=== PATIENT | female | born 1980 | race American Indian/Alaskan Native ===

== ENCOUNTER 2019-03-01 19:59 | Emergency (ER) | payer SELFPAY ==
--- NOTE | 2019-03-01 21:33 | Emergency Department Report ---
Blank Doc - Documentation Documentation: Pt reports that she is having chest pain burning and sharp. Pain is 9/10 const ant and located left chest and radiating to back. No fever . positive chills. no cough. Pain worst with inspiration. No h/o blood clots . pain x 1 month. On depo . No medical problems Patient no toxic in appearance and NL WOB Xray, labs, EKG
[2019-03-01 21:56] LABS: Basophils # (Auto) 0.1 K/mm3 (0.0-0.1); Eosinophils # (Auto) 0.2 K/mm3 (0.0-0.4); Eosinophils % (Auto) 2.4 % (0.0-4.3); Hematocrit 37.7 % (30.3-42.9); Hemoglobin 13.2 gm/dl (10.1-14.3); Lymphocytes % (Auto) 40.8 % (13.4-35.0); Mean Corpuscular HGB Conc 35 % (30-34); Mean Corpuscular Volume 81 fl (79-97); Monocytes # (Auto) 0.6 K/mm3 (0.0-0.8); Monocytes % (Auto) 8.4 % (0.0-7.3); Platelet Count 273 K/mm3 (140-440); Red Blood Count 4.69 M/mm3 (3.65-5.03)
[2019-03-01 22:06] LABS: INR 0.99 (0.87-1.13)
[2019-03-01 22:15] LABS: Alanine Aminotransferase 21 units/L (7-56); Albumin 3.7 g/dL (3.9-5); BUN/Creatinine Ratio 13; Blood Urea Nitrogen 9 mg/dL (7-17); Hemolysis Index 40
[2019-03-01 22:25] LABS: Partial Thromboplastin Time 25.9 Sec. (24.2-36.6)
--- NOTE | 2019-03-01 23:07 | XRay Report ---
CHEST 2 VIEWS INDICATION / CLINICAL INFORMATION: Chest pain. COMPARISON: None available. FINDINGS: SUPPORT DEVICES: None. HEART / MEDIASTINUM: The heart size and pulmonary vasculature are normal. The aorta is normal in [place]en [place]. LUNGS / PLEURA: No significant pulmonary or pleural abnormality. No pneumothorax. ADDITIONAL FINDINGS: No significant additional findings. IMPRESSION: No acute findings. Signer Name: Wilver Germain MD Signed: 03/01/2019 11:02 PM Workstation Name: [id number]
[2019-03-01] MEDS ORDERED: ASPIRIN PO ONE (23:24)
[2019-03-02] MEDS ORDERED: ALUM-MAG HYDROX-SIMETH 200-200-20MG/5ML PO ONE (00:41)
[2019-03-02] MEDS ORDERED: TORADOL IM ONE (00:41)
[2019-03-02] MEDS ORDERED: LIDOCAINE VISCOUS 2% PO ONE (00:41)
--- NOTE | 2019-03-02 01:59 | Emergency Department Report ---
ED Chest Pain HPI - General Chief Complaint: Chest Pain Stated Complaint: CHEST PAIN Time Seen by Provider: 03/01/19 21:27 Source: patient Mode of arrival: Ambulatory Limitations: No Limitations - History of Present Illness Initial Comments: Patient is a 38-year-old female with no past medical history who presents to the ED with complaint of acute onset persistent constant chest pain for the last 1 month. Patient states that the pain is worse with any active range of motion, palpation, movement or heavy lifting. Patient states that her job entails heavy lifting and states that this makes her chest pain worse. Patient states that in the last 3 days the pain has worsened. Patient denies diaphoresis, nausea, vomiting, dizziness, headache, neck pain, numbness and tingling of upper extremities bilaterally, shortness of breath, palpitations, change in vision, abdominal pain, back pain, syncope or seizures, cough or fever and chills. MD Complaint: chest pain, other (diffuse chest pain) -: Sudden, month(s) (1) Onset: during exertion, awoke with symptoms Pain Location: substernal, left chest, right chest Pain Radiation: none Severity scale (0 -10): 8 Quality: aching, sharp Consistency: constant Improves With: nothing Worsens With: exertion, palpation, movement re: denies: nausea, vomting, diaphoresis, dyspnea, sense of impending doom Other Symptoms: denies: cough, fever, syncope, rash, acid taste in mouth, leg swelling, palpitations, burping, other Treatments Prior to Arrival: none - Related Data On Oral Contraceptives: No Previous Rx's Medication Instructions Recorded Last Taken Type Azithromycin [Zithromax TAB] 500 mg PO QDAY #3 tablet 11/02/15 Unknown Rx HYDROcodone/APAP 5-325 [[place] 1 each PO Q6HR PRN #14 tablet 11/02/15 Unknown Rx 5/325] Permethrin 5% [Acticin 5% CREAM] 1 applicatio TP ONCE #1 tube 11/02/15 Unknown Rx Cyclobenzaprine [Flexeril] 10 mg PO Q8H PRN #15 tablet 03/02/19 Unknown Rx Naproxen [Naprosyn] 500 mg PO Q12H PRN #20 tablet 03/02/19 Unknown Rx Ranitidine HCl [Zantac] 150 mg PO Q12H #30 tablet 03/02/19 Unknown Rx Allergies Allergy/AdvReac Type Severity Reaction Status Date / Time No Known Allergies Allergy Unverified 11/02/15 09:51 Heart Score - HEART Score History: Slightly suspicious EKG: Normal Age: < 45 Risk factors: No known risk factors Troponin: < normal limit HEART Score: 0 - Critical Actions Critical Actions: 0-3 pts:0.9-1.7%risk of adverse cardiac event.Candidate for discharge ED Review of Systems ROS: Stated complaint: CHEST PAIN Other details as noted in HPI Constitutional: denies: chills, fever Eyes: denies: eye pain, eye discharge, vision change ENT: denies: ear pain, throat pain Respiratory: denies: cough, shortness of breath, SOB with exertion, SOB at rest, wheezing Cardiovascular: chest pain. denies: palpitations, dyspnea on exertion, syncope, paroxysmal nocturnal dyspnea Endocrine: no symptoms reported. denies: increased hunger, unexplained weight gain Gastrointestinal: denies: abdominal pain, nausea, diarrhea Genitourinary: denies: urgency, dysuria, discharge Musculoskeletal: denies: back pain, joint swelling, arthralgia Skin: denies: rash, lesions Neurological: denies: headache, weakness, paresthesias Psychiatric: denies: anxiety, depression Hematological/Lymphatic: denies: easy bleeding, easy bruising ED Past Medical Hx - Past Medical History Hx Diabetes: Yes (GESTATIONAL) Additional medical history: TB - Surgical History Past Surgical History?: No - Social History Smoking Status: Never Smoker Substance Use Type: Alcohol - Medications Home Medications: Home Medications Medication Instructions Recorded Confirmed Last Taken Type Azithromycin [Zithromax TAB] 500 mg PO QDAY #3 tablet 11/02/15 Unknown Rx HYDROcodone/APAP 5-325 [[place] 1 each PO Q6HR PRN #14 tablet 11/02/15 Unknown Rx 5/325] Permethrin 5% [Acticin 5% CREAM] 1 applicatio TP ONCE #1 tube 11/02/15 Unknown Rx Cyclobenzaprine [Flexeril] 10 mg PO Q8H PRN #15 tablet 03/02/19 Unknown Rx Naproxen [Naprosyn] 500 mg PO Q12H PRN #20 tablet 03/02/19 Unknown Rx Ranitidine HCl [Zantac] 150 mg PO Q12H #30 tablet 03/02/19 Unknown Rx ED Physical Exam - General Limitations: No Limitations General appearance: alert, in no apparent distress - Head Head exam: Present: atraumatic, normocephalic, normal inspection - Eye Eye exam: Present: normal appearance, PERRL, EOMI. Absent: scleral icterus, conjunctival injection, nystagmus Pupils: Present: normal accommodation - ENT ENT exam: Present: normal exam, normal orophraynx, mucous membranes moist, TM's normal bilaterally, normal external ear exam - Neck Neck exam: Present: normal inspection, full ROM. Absent: tenderness, meningismus, lymphadenopathy, thyromegaly - Respiratory Respiratory exam: Present: normal lung sounds bilaterally, chest wall tenderness (reproducible chest wall tenderness to palpation). Absent: respiratory distress, wheezes, rales, rhonchi, stridor, accessory muscle use, decreased breath sounds - Cardiovascular Cardiovascular Exam: Present: regular rate, normal rhythm, normal heart sounds. Absent: systolic murmur, diastolic murmur, rubs, gallop - GI/Abdominal GI/Abdominal exam: Present: soft, normal bowel sounds. Absent: distended, rebound, hyperactive bowel sounds, hypoactive bowel sounds, organomegaly - Rectal Rectal exam: Present: deferred - Extremities Exam Extremities exam: Present: normal inspection, full ROM, normal capillary refill - Back Exam Back exam: Present: normal inspection, full ROM. Absent: tenderness, CVA tenderness (R), CVA tenderness (L), muscle spasm, paraspinal tenderness, vertebral tenderness - Neurological Exam Neurological exam: Present: alert, oriented X3, CN II-XII intact, normal gait, reflexes normal - Psychiatric Psychiatric exam: Present: normal affect, normal mood - Skin Skin exam: Present: warm, dry, intact, normal color. Absent: rash ED Course Vital Signs 03/01/19 03/01/19 03/02/19 20:14 23:58 00:59 Temperature 98.5 F 98.0 F Pulse Rate 85 83 Respiratory 16 14 16 Rate Blood Pressure 133/84 Blood Pressure 108/50 [Right] O2 Sat by Pulse 99 100 Oximetry 03/02/19 02:18 Temperature Pulse Rate 79 Respiratory 16 Rate Blood Pressure Blood Pressure 113/72 [Right] O2 Sat by Pulse 99 Oximetry - Reevaluation(s) Reevaluation #1: 03/02/19 02:07 Patient is alert and oriented 3 and is not in distress. Vital signs are stable. Chest x-ray shows no acute cardiopulmonary abnormalities. Lab test results were reviewed and are all unremarkable including troponin levels. EKG shows normal sinus rhythm with no ST or T-wave abnormalities. Patient was treated with any bleeding and on reevaluation, patient's chest wall pain is moderately controlled. Patient was discharged home on pain medications and muscle relaxants and advised to follow-up with her primary care physician in 2-3 days for reevaluation or return to the ED immediately if symptoms get worse. MEGHNA score - Meghna Score Age > 65: (0) No Aspirin use within the Past 7 Days: (0) No 3 or more CAD Risk Factors: (0) No 2 or more Angina events in past 24 hrs: (0) No Known CAD with more than 50% Stenosis: (0) No Elevated Cardiac Markers: (0) No ST Deviation Greater than 0.5mm: (0) No MEGHNA Score: 0 ED Medical Decision Making - Lab Data Result diagrams: 03/01/19 21:46 03/01/19 21:46 - EKG Data EKG shows normal: sinus rhythm - EKG Data Interpretation: normal EKG - Radiology Data Radiology results: report reviewed, image reviewed Chest x-ray: No acute cardiopulmonary abnormalities - Medical Decision Making Patient is alert and oriented 3 and is not in distress. Vital signs are stable. Chest x-ray shows no acute cardiopulmonary abnormalities. Lab test results were reviewed and are all unremarkable including troponin levels. EKG shows normal sinus rhythm with no ST or T-wave abnormalities. Patient was treated with any bleeding and on reevaluation, patient's chest wall pain is moderately controlled. Patient's symptoms are musculoskeletal there is no physical exam findings or palpable chest wall tenderness which is reproducible pain. The heart score for the patient is 0 and patient has no risk factors for acute coronary syndrome or PE. Patient was discharged home on pain medications and muscle relaxants and advised to follow-up with her primary care physician in 2-3 days for reevaluation or return to the ED immediately if symptoms get worse. - Differential Diagnosis Nonspecific chest pain; ACS, Pneumonia; Muscle strain, costochondritis Critical care attestation.: If time is entered above; I have spent that time in minutes in the direct care of this critically ill patient, excluding procedure time. ED Disposition Clinical Impression: Nonspecific chest pain, Acute costochondritis, Muscle strain of anterior chest wall Disposition: DC- TO HOME OR SELFCARE Is pt being admited?: No Does the pt Need Aspirin: No Condition: Stable Instructions: Chest Pain (ED), Muscle Strain (ED), Costochondritis (ED) Additional Instructions: Take medications with food, drink plenty of fluids and follow up with your primary care physician in 2 days for reevaluation. Return to the ED immediately if symptoms get worse. Prescriptions: Cyclobenzaprine [Flexeril] 10 mg PO Q8H PRN #15 tablet PRN Reason: Spasms Naproxen [Naprosyn] 500 mg PO Q12H PRN #20 tablet PRN Reason: Pain , Severe (7-10) Ranitidine HCl [Zantac] 150 mg PO Q12H #30 tablet Referrals: [facility] [Outside] - 3-5 Days Time of Disposition: 02:02 Print Language: AZERI
[2019-03-02 02:19] VITALS: BP 113/72
== END 2019-03-02 02:20 | disposition home or self-care (01) ==
LOC: ED 19:59
DX: S29.011A Strain of muscle and tendon of front wall of thorax, initial encounter (principal); E11.9 Type 2 diabetes mellitus without complications; Z79.899 Other long term (current) drug therapy; X58.XXXA Exposure to other specified factors, initial encounter; Y93.89 Activity, other specified; Y92.89 Other specified places as the place of occurrence of the external cause; Y99.8 Other external cause status
CPT/HCPCS: 36415; 71046; 80053; 84484; 84703; 85025; 85379; 85610; 85730; 93005; 93010; 96372; 99284; J1885